=== PATIENT | female | born 1970 | race American Indian/Alaskan Native ===

== ENCOUNTER 2021-03-06 10:47 | Outpatient (CLI) | payer OTHER ==
--- NOTE | 2021-03-06 12:36 | XRay Report ---
CERVICAL SPINE 3 VIEWS INDICATION: NECKPAIN. COMPARISON: None. IMPRESSION: There is straightening of the normal lordosis which could be secondary to positioning of the patient. There is normal alignment otherwise. No significant discogenic DJD or facet arthropath y. No acute osseous or soft tissue abnormality. RIGHT KNEE 2 VIEWS INDICATION: Right knee pain. COMPARISON: None. IMPRESSION: Normal bone mineralization. No acute osseous abnormality or bone lesion. No significant DJD. Signer Name: Sonido Gonzalez Jr, MD Signed: 03/06/2021 12:32 PM Workstation Name: [id number]
== END 2021-03-06 10:48 | disposition home or self-care (01) ==
LOC: XRAY 10:47
PROVIDERS: ATTEND Internal Medicine
DX: M54.2 Cervicalgia (principal); M25.561 Pain in right knee
CPT/HCPCS: 72040

== ENCOUNTER 2021-11-24 13:47 | Inpatient (IN) | payer SELFPAY ==
[2021-11-24] MEDS ORDERED: INSULIN REGULAR, HUMAN 100 UNITS/1 ML IV STA (14:10)
[2021-11-24] MEDS ORDERED: SODIUM CHLORIDE 0.9% 1000 ML 1,000 ML IV ONE ×3 (14:10→16:54)
--- NOTE | 2021-11-24 14:17 | Emergency Department Report ---
ED General Adult HPI - General Chief complaint: Altered Mental Status Stated complaint: AMS/HYPERGLYCEMIA PUI?: No Time Seen by Provider: 11/24/21 13:54 Source: patient, EMS, old records reviewed Mode of arrival: Stretcher Limitations: No Limitations - History of Present Illness Initial comments: Chief complaint: "My son called because I was not feeling good." HPI: This is a 50-year-old female with history of diabetes mellitus, hypertension who presents with generalized malaise. Patient has not been feeling well for several days. Her son called 911. She denies headache, fever, chest pain, abdominal pain, vomiting. She has not been hospitalized in several years. She only takes Metformin for diabetes mellitus treatment. Accu-Chek read "high". -: Gradual, days(s) (Several days) Severity scale (0 -10): 0 Consistency: constant Improves with: none Worsens with: none Associated Symptoms: malaise Treatments Prior to Arrival: none, other (EMS transport) - Related Data Home Medications Medication Instructions Recorded Confirmed Last Taken Insulin Glargine,Hum.rec.anlog 20 units SUB-Q QHS 11/06/13 11/06/13 11/05/13 22:00 [Lantus Solostar] Insulin NPH/Regular [Novolin 70/30] 25 units SUB-Q QAM 11/06/13 11/06/13 11/05/13 08:00 Previous Rx's Medication Instructions Recorded Last Taken Type Cyclobenzaprine [Flexeril] 10 mg PO TID PRN #15 tablet 11/06/13 Unknown Rx HYDROcodone/APAP 5-325 [[place] 1 each PO Q6HR PRN #15 tablet 11/06/13 Unknown Rx 5/325 mg] Allergies Allergy/AdvReac Type Severity Reaction Status Date / Time codeine AdvReac Swelling Verified 11/06/13 12:40 iodine AdvReac Unknown Verified 11/06/13 12:40 Penicillins AdvReac Swelling Verified 11/06/13 12:40 ED Review of Systems ROS: Stated complaint: AMS/HYPERGLYCEMIA Other details as noted in HPI Comment: All other systems reviewed and negative Constitutional: malaise. denies: chills, fever Respiratory: denies: cough, shortness of breath Cardiovascular: denies: chest pain Gastrointestinal: denies: abdominal pain, nausea, vomiting Neurological: denies: headache ED Past Medical Hx - Past Medical History Previous Medical History?: Yes Hx Hypertension: Yes Hx Diabetes: Yes - Surgical History Past Surgical History?: No - Family History Family history: diabetes - Social History Smoking Status: Never Smoker Substance Use Type: None - Medications Home Medications: Home Medications Medication Instructions Recorded Confirmed Last Taken Type Cyclobenzaprine [Flexeril] 10 mg PO TID PRN #15 tablet 11/06/13 Unknown Rx HYDROcodone/APAP 5-325 [[place] 1 each PO Q6HR PRN #15 tablet 11/06/13 Unknown Rx 5/325 mg] Insulin Glargine,Hum.rec.anlog 20 units SUB-Q QHS 11/06/13 11/06/13 11/05/13 22:00 History [Lantus Solostar] Insulin NPH/Regular [Novolin 70/30] 25 units SUB-Q QAM 11/06/13 11/06/13 11/05/13 08:00 History ED Physical Exam - General Limitations: No Limitations General appearance: alert, in no apparent distress - Head Head exam: Present: atraumatic, normocephalic - Eye Eye exam: Present: normal appearance - ENT ENT exam: Present: mucous membranes moist - Neck Neck exam: Present: normal inspection, full ROM - Respiratory Respiratory exam: Present: normal lung sounds bilaterally. Absent: respiratory distress, wheezes, rales, rhonchi - Cardiovascular Cardiovascular Exam: Present: regular rate, normal rhythm, normal heart sounds. Absent: systolic murmur, diastolic murmur, rubs, gallop - GI/Abdominal GI/Abdominal exam: Present: soft, normal bowel sounds. Absent: distended, tenderness, guarding, rebound - Extremities Exam Extremities exam: Present: normal inspection - Neurological Exam Neurological exam: Present: alert, oriented X3 - Psychiatric Psychiatric exam: Present: normal affect, normal mood - Skin Skin exam: Present: warm, dry, intact, normal color. Absent: rash ED Course Vital Signs 11/24/21 11/24/21 11/24/21 14:01 14:02 14:09 Temperature 97.7 F 97.7 F Pulse Rate 108 H 112 H Respiratory 16 17 17 Rate Blood Pressure Blood Pressure 100/53 106/62 [Left] O2 Sat by Pulse 99 100 Oximetry 11/24/21 11/24/21 11/24/21 14:12 14:16 14:30 Temperature Pulse Rate 111 H 112 H 109 H Respiratory 17 15 Rate Blood Pressure 106/62 100/55 Blood Pressure [Left] O2 Sat by Pulse 100 94 Oximetry 11/24/21 11/24/21 11/24/21 14:46 15:00 15:16 Temperature Pulse Rate 108 H 107 H Respiratory 13 11 L Rate Blood Pressure 110/54 98/50 100/62 Blood Pressure [Left] O2 Sat by Pulse 97 79 L 96 Oximetry 11/24/21 11/24/21 11/24/21 15:30 15:46 16:00 Temperature Pulse Rate Respiratory Rate Blood Pressure 97/47 93/50 67/36 Blood Pressure [Left] O2 Sat by Pulse 99 99 100 Oximetry 11/24/21 11/24/21 16:16 16:30 Temperature Pulse Rate Respiratory Rate Blood Pressure 62/44 72/54 Blood Pressure [Left] O2 Sat by Pulse 100 98 Oximetry ED Medical Decision Making - Lab Data Result diagrams: 11/24/21 14:21 11/24/21 14:21 - Medical Decision Making Diabetic ketoacidosis: Patient received IV fluid 4 L total. Patient developed hypotension during treatment. Suspect severe volume depletion. Patient also received IV regular insulin bolus. Also received insulin infusion. Admitted to the ICU stable condition. Venous pH 7.24 chemistry revealed anion gap 46 BUN 46 creatinine 1.4 bicarbonate 12. Elevated phosphorus and elevated magnesium 1 chemistry. Glucose 798. No indication of infection on this presentation. Suspect diabetes has been poorly controlled with Metformin. Critical care attestation.: If time is entered above; I have spent that time in minutes in the direct care of this critically ill patient, excluding procedure time. ED Disposition Clinical Impression: Diabetic ketoacidosis Disposition: ADMITTED INPATIENT Is pt being admited?: Yes Does the pt Need Aspirin: No Condition: Fair Instructions: Diabetic Ketoacidosis (ED)
[2021-11-24 15:13] LABS: Basophils % (Auto) 0.3 % (0.0-1.8); Hemoglobin 14.2 gm/dl (10.1-14.3); Lymphocytes # (Auto) 1.2 K/mm3 (1.2-5.4); Lymphocytes % (Auto) 11.2 % (13.4-35.0); Mean Corpuscular HGB Conc 32 % (30-34); Mean Corpuscular Volume 89 fl (79-97); Monocytes # (Auto) 0.5 K/mm3 (0.0-0.8); Monocytes % (Auto) 4.2 % (0.0-7.3); Platelet Count 221 K/mm3 (140-440); Red Blood Count 5.08 M/mm3 (3.65-5.03); Red Cell Distribution Width 14.8 % (13.2-15.2)
[2021-11-24 15:33] LABS: Bilirubin,Direct 0.2 mg/dL (0-0.2); Calcium 10.4 mg/dL (8.4-10.2)
[2021-11-24] MEDS: INSULIN REGULAR, HUMAN 100 UNITS in SODIUM CHLORIDE 0.9% 99 ML IV SCH (16:09)
[2021-11-24] MEDS: SODIUM CHLORIDE 0.9% 1000 ML 1,000 ML IV ONE ×2 (17:19→17:20)
--- NOTE | 2021-11-24 20:14 | History and Physical Report ---
History of Present Illness Date of examination: 11/24/21 Date of admission: November 24, 2021 Chief complaint: Altered sensorium for the last 36 hours History of present illness: 50-year-old -[place] female with history of insulin-dependent diabetes, hypertension who supposed to be on long-acting insulin and short-acting insulin has been lethargic for the last 36 hours. Son called 911. Patient has not been feeling well and has generalized malaise. No vomiting. No abdominal pain. Patient has been noncompliant with her medication regimen. Very poor historian. No fever or chills. No cough. No exacerbating or relieving factors. Except for not taking her medications which is an exacerbating factor. - Past Medical History --Previous Medical History?: Yes --Hypertension: Yes --Diabetes: Yes - Surgical History -- No - Family History --Diabetes - Social History --Smoking Status: Never Smoker --Substance Use Type: None - Medications --Home Medications: Home Medications Medication Instructions Recorded Confirmed Last Taken Type Cyclobenzaprine [Flexeril] 10 mg PO TID PRN #15 tablet 11/06/13 Unknown Rx HYDROcodone/APAP 5-325 [[place] 1 each PO Q6HR PRN #15 tablet 11/06/13 Unknown Rx 5/325 mg] Insulin Glargine,Hum.rec.anlog 20 units SUB-Q QHS 11/06/13 11/06/13 11/05/13 22:00 History [Lantus Solostar] Insulin NPH/Regular [Novolin 70/30] 25 units SUB-Q QAM 11/06/13 11/06/13 11/05/13 08:00 History Review of Systems ROS: Stated complaint: AMS/HYPERGLYCEMIA Other details as noted in HPI Comment: All other systems reviewed and negative Constitutional: malaise. denies: chills, fever Respiratory: denies: cough, shortness of breath Cardiovascular: denies: chest pain Gastrointestinal: denies: abdominal pain, nausea, vomiting Neurological: denies: headache Medications and Allergies Allergies Allergy/AdvReac Type Severity Reaction Status Date / Time codeine AdvReac Swelling Verified 11/06/13 12:40 iodine AdvReac Unknown Verified 11/06/13 12:40 Penicillins AdvReac Swelling Verified 11/06/13 12:40 Home Medications Medication Instructions Recorded Confirmed Last Taken Type Cyclobenzaprine [Flexeril] 10 mg PO TID PRN #15 tablet 11/06/13 Unknown Rx HYDROcodone/APAP 5-325 [[place] 1 each PO Q6HR PRN #15 tablet 11/06/13 Unknown Rx 5/325 mg] Insulin Glargine,Hum.rec.anlog 20 units SUB-Q QHS 11/06/13 11/06/13 11/05/13 22:00 History [Lantus Solostar] Insulin NPH/Regular [Novolin 70/30] 25 units SUB-Q QAM 11/06/13 11/06/13 11/05/13 08:00 History Active Meds: Active Medications Insulin Human Regular 100 (units/ Sodium Chloride) 100 mls @ 7 mls/hr IV TITR LORRAINE; Protocol Last Titration: 11/24/21 19:40 Dose: 7 units/hr, 7 mls/hr Exam - Constitutional Vitals: Temp Pulse Resp BP Pulse Ox 97.7 F 116 H 15 104/49 98 11/24/21 14:09 11/24/21 18:45 11/24/21 18:45 11/24/21 18:45 11/24/21 18:45 General appearance: Present: no acute distress, well-nourished - EENT Eyes: Present: PERRL ENT: hearing intact, clear oral mucosa - Neck Neck: Present: supple, normal ROM - Respiratory Respiratory effort: normal Respiratory: bilateral: CTA - Cardiovascular Heart rate: 88 Rhythm: regular Heart Sounds: Present: S1 & S2. Absent: rub, click - Extremities Extremities: pulses symmetrical, No edema Peripheral Pulses: within normal limits - Abdominal General gastrointestinal: Present: soft, non-tender, non-distended, normal bowel sounds Female genitourinary: Present: normal - Integumentary Integumentary: Present: clear, warm, dry - Musculoskeletal Musculoskeletal: strength equal bilaterally, generalized weakness - Psychiatric Psychiatric: other (Lethargic) - Neurologic Neurologic: CNII-XII intact, moves all extremities, other (Lethargic) Results - Labs CBC & Chem 7: 11/25/21 04:13 11/25/21 04:13 Labs: Laboratory Last Values WBC 11.1 K/mm3 (4.5-11.0) H 11/24/21 14:21 RBC 5.08 M/mm3 (3.65-5.03) H 11/24/21 14:21 Hgb 14.2 gm/dl (10.1-14.3) 11/24/21 14:21 Hct 45.0 % (30.3-42.9) H 11/24/21 14:21 MCV 89 fl (79-97) 11/24/21 14:21 MCH 28 pg (28-32) 11/24/21 14:21 MCHC 32 % (30-34) 11/24/21 14:21 RDW 14.8 % (13.2-15.2) 11/24/21 14:21 Plt Count 221 K/mm3 (140-440) 11/24/21 14:21 Lymph % (Auto) 11.2 % (13.4-35.0) L 11/24/21 14:21 [place] % (Auto) 4.2 % (0.0-7.3) 11/24/21 14:21 Eos % (Auto) 0.0 % (0.0-4.3) 11/24/21 14:21 Baso % (Auto) 0.3 % (0.0-1.8) 11/24/21 14:21 Lymph # (Auto) 1.2 K/mm3 (1.2-5.4) 11/24/21 14:21 [place] # (Auto) 0.5 K/mm3 (0.0-0.8) 11/24/21 14:21 Eos # (Auto) 0.0 K/mm3 (0.0-0.4) 11/24/21 14:21 Baso # (Auto) 0.0 K/mm3 (0.0-0.1) 11/24/21 14:21 Seg Neutrophils % 84.3 % (40.0-70.0) H 11/24/21 14: Seg Neutrophils # 9.3 K/mm3 (1.8-7.7) H 11/24/21 14:21 VBG pH 7.239 (7.320-7.420) L 11/24/21 14:21 Sodium 143 mmol/L (137-145) 11/24/21 14:21 Potassium 5.2 mmol/L (3.6-5.0) H 11/24/21 14:21 Chloride 90.0 mmol/L (98-107) L 11/24/21 14:21 Carbon Dioxide 12 mmol/L (22-30) L 11/24/21 14:21 Anion Gap 46 mmol/L 11/24/21 14:21 BUN 46 mg/dL (7-17) H 11/24/21 14:21 Creatinine 1.4 mg/dL (0.6-1.2) H 11/24/21 14:21 Estimated GFR 48 ml/min 11/24/21 14:21 BUN/Creatinine Ratio 33 % 11/24/21 14:21 Glucose 798 mg/dL (65-100) H* 11/24/21 14:21 POC Glucose 358 mg/dL (70-105) H 11/24/21 19:40 Calcium 10.4 mg/dL (8.4-10.2) H 11/24/21 14:21 Phosphorus 6.00 mg/dL (2.5-4.5) H 11/24/21 14:21 Magnesium 3.20 mg/dL (1.7-2.3) H 11/24/21 14:21 Total Bilirubin 0.40 mg/dL (0.1-1.2) 11/24/21 14:21 Direct Bilirubin 0.2 mg/dL (0-0.2) 11/24/21 14:21 Indirect Bilirubin 0.2 mg/dL 11/24/21 14:21 AST 9 units/L (5-40) 11/24/21 14:21 ALT 12 units/L (7-56) 11/24/21 14:21 Alkaline Phosphatase 113 units/L (35-129) 11/24/21 14:21 Total Protein 7.4 g/dL (6.3-8.2) 11/24/21 14:21 Albumin 4.0 g/dL (3.9-5) 11/24/21 14:21 Albumin/Globulin Ratio 1.2 % 11/24/21 14:21 Short CBC 11/24/21 11/25/21 Range/Units 14:21 04:13 WBC 11.1 H 8.8 (4.5-11.0) K/mm3 Hgb 14.2 12.4 (10.1-14.3) gm/dl Hct 45.0 H 38.8 D (30.3-42.9) % Plt Count 221 195 (140-440) K/mm3 BMP 11/24/21 11/24/21 11/25/21 14:21 22:38 04:13 Sodium 143 148 H 152 H Potassium 5.2 H 4.2 4.2 Chloride 90.0 L 110.7 H 114.8 H Carbon Dioxide 12 L 18 L 23 BUN 46 H 46 H 44 H Creatinine 1.4 H 1.2 1.1 Glucose 798 H* 287 H 195 H Calcium 10.4 H 8.6 D 8.8 Liver Function 11/24/21 11/25/21 Range/Units 14:21 04:13 Total Bilirubin 0.40 0.30 (0.1-1.2) mg/dL Direct Bilirubin 0.2 (0-0.2) mg/dL AST 9 9 (5-40) units/L ALT 12 11 (7-56) units/L Alkaline Phosphatase 113 88 (35-129) units/L Albumin 4.0 3.6 L (3.9-5) g/dL Assessment and Plan Assessment and plan: Critical care statement The high probability OF a clinically significant sudden or life-threatening deterioration of the cardiorespiratory system and endocrine system required my full and direct attention, intervention and postoperative management. The aggregate critical care time was 33 minutes. The time is in addition to time spent performing reported procedures but includes the followin: Data review and interpretation 2: Patient assessment and monitoring of vital signs 3: Documentation 4:: Medication orders and management Advance Directives: Yes (Full code) VTE prophylaxis?: Chemical Plan of care discussed with patient/family: Yes - Patient Problems (1) Diabetic ketoacidosis Current Visit: Yes Status: Acute Qualifiers: Diabetes mellitus type: type 2 Diabetes mellitus complication detail: without coma Qualified Code(s): E11.10 - Type 2 diabetes mellitus with ketoacidosis without coma Plan to address problem: DKA due to noncompliance CO2 level is 12 IV insulin IV fluids Regular Accu-Cheks Patient also started on Lantus 20 units nightly subcu Monitor sodium and potassium closely Volume depletion present Check hemoglobin A1c (2) Hypertension Current Visit: Yes Status: Chronic Qualifiers: Hypertension type: primary hypertension Qualified Code(s): I10 - Essential (primary) hypertension Plan to address problem: Patient not on any antihypertensives We will initiate antihypertensives if necessary after trending the blood pressure levels (3) MIKE (acute kidney injury) Current Visit: Yes Status: Acute Plan to address problem: Secondary to volume depletion and vasomotor nephropathy IV fluids for now (4) Hypercalcemia Current Visit: Yes Status: Acute Plan to address problem: Secondary to volume depletion IV fluids for now (5) Hypermagnesemia Current Visit: Yes Status: Acute Plan to address problem: Secondary to volume depletion IV fluids for now (6) DVT prophylaxis Current Visit: Yes Status: Acute Plan to address problem: Anticoagulation GI prophylaxis (7) Advance care planning Current Visit: Yes Status: Acute Plan to address problem: Disease education conducted, care plan discussed, diagnosis discussed, prognosis discussed. Patient is full code. Patient acknowledges understanding and agreement with care plan. +30 minutes.
[2021-11-24] MEDS ORDERED: HYDROmorphone 1 MG/1 ML INJ IV PRN (20:15)
[2021-11-24] MEDS ORDERED: MORPHINE 2 MG/1 ML INJ IV PRN (20:15)
[2021-11-24] MEDS ORDERED: ONDANSETRON 4 MG/2 ML INJ IV PRN (20:15)
[2021-11-24] MEDS ORDERED: ACETAMINOPHEN 325 MG TAB PO PRN (20:15)
[2021-11-24] MEDS ORDERED: D5W/0.45% NACL/KCL 20 MEQ 20 MEQ/1,000 ML BAG IV SCH (21:00)
[2021-11-24] MEDS ORDERED: INSULIN REGULAR, HUMAN 100 UNITS in SODIUM CHLORIDE 0.9% 99 ML IV SCH (21:00)
[2021-11-24] MEDS: POTASSIUM CHLORIDE 10 MEQ 10 MEQ/100 ML BAG IV SCH ×3 (21:38→23:47)
[2021-11-24] MEDS ORDERED: INSULIN GLARGINE 100 UNITS/ML SUB-Q SCH (22:00)
[2021-11-24] MEDS ORDERED: HEPARIN 5,000 UNIT/1 ML VIAL SUB-Q SCH (22:00)
[2021-11-24] MEDS ORDERED: FAMOTIDINE 20 MG/2 ML INJ IV SCH (22:00)
[2021-11-24] MEDS ORDERED: SODIUM CHLORIDE 0.45% 1000 ML 1,000 ML IV SCH (22:00)
[2021-11-24] MEDS ORDERED: INSULIN GLARGINE HUM REC ANLOG 100 UNIT/ML SUB-Q SCH (22:00)
[2021-11-24 23:09] LABS: Calcium 8.6 mg/dL (8.4-10.2)
[2021-11-24] MEDS ORDERED: LORazepam 2 MG/ML VIAL IV PRN ×2 (23:58→23:59)
[2021-11-25] MEDS: POTASSIUM CHLORIDE 10 MEQ 10 MEQ/100 ML BAG IV SCH (00:19)
[2021-11-25 05:08] LABS: Basophils % (Auto) 0.3 % (0.0-1.8); Eosinophils % (Auto) 0.1 % (0.0-4.3); Hematocrit 38.8 % (30.3-42.9); Hemoglobin 12.4 gm/dl (10.1-14.3); Lymphocytes # (Auto) 1.4 K/mm3 (1.2-5.4); Mean Corpuscular HGB Conc 32 % (30-34); Mean Corpuscular Volume 85 fl (79-97); Monocytes # (Auto) 0.8 K/mm3 (0.0-0.8); Monocytes % (Auto) 8.9 % (0.0-7.3); Platelet Count 195 K/mm3 (140-440); Red Blood Count 4.57 M/mm3 (3.65-5.03); Red Cell Distribution Width 14.6 % (13.2-15.2)
[2021-11-25 05:32] LABS: Alanine Aminotransferase 11 units/L (7-56); Albumin 3.6 g/dL (3.9-5); BUN/Creatinine Ratio 40; Blood Urea Nitrogen 44 mg/dL (7-17); Calcium 8.8 mg/dL (8.4-10.2); Hemolysis Index 9
[2021-11-25] MEDS ORDERED: D5W/0.45% NACL 1,000 ML IV ONE (05:53)
[2021-11-25] MEDS ORDERED: DEXTROSE 50% IN WATER (25GM) 50 ML SYRINGE IV PRN (07:31)
[2021-11-25] MEDS ORDERED: POTASSIUM PHOSPHATE 30 MMOL in SODIUM CHLORIDE 0.9% 500 ML 500 ML IV ONE ×2 (07:35→17:09)
[2021-11-25] MEDS ORDERED: INSULIN REGULAR, HUMAN 100 UNITS/1 ML SUB-Q SCH (08:00)
[2021-11-25] MEDS ORDERED: DEXTROSE 10% *Hypoglycemia IV PRN (09:08)
[2021-11-25] MEDS ORDERED: INSULIN GLARGINE 100 UNITS/ML SUB-Q SCH (10:00)
--- NOTE | 2021-11-25 10:26 | Event Note ---
Date: 11/25/21 50 y/o admitted with DKA. Elevated anion Gap. Started on insulin drip and now Gap has resolved. Placed on Long acting insulin. Feed patient and transition to floor. Will sign off. Call if questions.
[2021-11-25] MEDS: FAMOTIDINE 20 MG TAB PO SCH (11:00)
[2021-11-25] MEDS: K-PHOS NEUTRAL 250 MG TAB PO SCH ×4 (11:00→21:08)
[2021-11-25] MEDS: FREE WATER PO SCH ×4 (11:11→21:44)
[2021-11-25] MEDS ORDERED: INSULIN LISPRO 100 UNIT/ML SUB-Q SCH (11:30)
[2021-11-25 13:28] LABS: BUN/Creatinine Ratio 38; Blood Urea Nitrogen 34 mg/dL (7-17); Calcium 9.3 mg/dL (8.4-10.2); Hemolysis Index 19
--- NOTE | 2021-11-25 13:32 | Progress Note ---
Assessment and Plan Assessment and plan: This is a 50-year-old female with HTN, IDDM, medical noncompliance admitted with DKA, MIKE, and electrolyte imbalances. Assessment and plan: Neuro: Acute metabolic encephalopathy -Patient is confused but oriented to self and follows commands -Avoid delirium -Reorientation as needed -Maintain sleep-wake cycle Cardiac: h/o HTN -No hypertensive regimen listed on home medications -Blood pressure monitoring per protocol -Start beta-kwabena Respiratory: NAD -Rheumatology as needed -SPO2 monitoring -Pulmonary hygiene GI: NAD -24 hours +46 -PPI -BR: colace : Acute kidney injury secondary to vasomotor nephropathy, hypernatremia, hyperchloremia, high anion gap metabolic acidosis -Presented with a BUN/creatinine of 1.4/46 -Renally dose medications -Avoid nephrotoxic medications -Daily weights -PO free water ID: SIRs -Presented with leukocytosis, tachycardia -Monitor WBC and fever curve Endo: DKA, h/o IDDM -s/p insulin gtt this AM r/t AG closing however patient needed to be restarted this afternoon d/t AG opening back up -Avoid hypoglycemia -Accu-Cheks per protocol -BMP per protocol -Hemoglobin A1c 20.6 -We will need discharge with diabetic supplies and extensive education for compliance. -Nutrition consult for diabetic education Heme: Leukocytosis (resolved) -Trend CBC -Transfuse hemoglobin less than 7 -Monitor for signs of bleeding -SCDs to BLE while in bed The high probability of a clinically significant, sudden or life threatening deterioration of the [endo] system(s) required my full and direct attention, intervention and personal management. The aggregate critical care time was [60] minutes. This time is in addition to time spent performing reported procedures but includes the following: [x] Data Review and interpretation [x] Patient assessment and monitoring of vital signs [x] Documentation [x] Medication orders and management History Interval history: This is a 50-year-old female with HTN, IDDM and noncompliance presented to the emergency department on 11/24 for complaints of lethargy/AMS for 36 hours, generalized malaise and not feeling well. EMS. Work-up in the emergency department revealed hyponatremia, hypochloremia, anion gap metabolic acidosis, leukocytosis, hyperkalemia and hyperglycemia. Patient was admitted to the hospitalist service with DKA and electrolyte imbalances, acute kidney injury on insulin drip to the ICU with consults to [facility]. Hospital course to date: 11/25: Anion gap closed, insulin drip transitioned to SSI, long-acting insulin and short acting meal doses. Patient started on a CC diet, COVID-19 PCR pending. Patient will be transferred to [facility]. Hospitalist Physical - Constitutional Vitals: Temp Pulse Resp BP Pulse Ox 99 F 107 H 17 150/91 100 11/25/21 08:00 11/25/21 13:11 11/25/21 13:11 11/25/21 13:11 11/25/21 13:11 General appearance: Present: no acute distress, well-nourished - EENT Eyes: Present: PERRL, EOM intact ENT: hearing intact, clear oral mucosa - Neck Neck: Present: normal ROM - Respiratory Respiratory effort: normal Respiratory: bilateral: diminished - Cardiovascular Rhythm: regular Heart Sounds: Present: S1 & S2. Absent: systolic murmur, diastolic murmur - Extremities Extremities: no ischemia, pulses intact, pulses symmetrical, No edema, normal temperature, normal color Peripheral Pulses: within normal limits - Abdominal General gastrointestinal: soft, non-tender, non-distended, normal bowel sounds - Integumentary Integumentary: Present: warm, dry - Psychiatric Psychiatric: cooperative - Neurologic Neurologic: CNII-XII intact, no focal deficits, moves all extremities - Allied Health Allied health notes reviewed: nursing, RT, social work Results - Labs CBC & Chem 7: 11/25/21 04:13 11/25/21 12:46 Labs: Laboratory Last Values WBC 8.8 K/mm3 (4.5-11.0) 11/25/21 04:13 RBC 4.57 M/mm3 (3.65-5.03) 11/25/21 04:13 Hgb 12.4 gm/dl (10.1-14.3) 11/25/21 04:13 Hct 38.8 % (30.3-42.9) D 11/25/21 04:13 MCV 85 fl (79-97) 11/25/21 04:13 MCH 27 pg (28-32) L 11/25/21 04:13 MCHC 32 % (30-34) 11/25/21 04:13 RDW 14.6 % (13.2-15.2) 11/25/21 04:13 Plt Count 195 K/mm3 (140-440) 11/25/21 04:13 Lymph % (Auto) 16.0 % (13.4-35.0) 11/25/21 04:13 [place] % (Auto) 8.9 % (0.0-7.3) H 11/25/21 04:13 Eos % (Auto) 0.1 % (0.0-4.3) 11/25/21 04:13 Baso % (Auto) 0.3 % (0.0-1.8) 11/25/21 04:13 Lymph # (Auto) 1.4 K/mm3 (1.2-5.4) 11/25/21 04:13 [place] # (Auto) 0.8 K/mm3 (0.0-0.8) 11/25/21 04:13 Eos # (Auto) 0.0 K/mm3 (0.0-0.4) 11/25/21 04:13 Baso # (Auto) 0.0 K/mm3 (0.0-0.1) 11/25/21 04:13 Seg Neutrophils % 74.7 % (40.0-70.0) H 11/25/21 04:13 Seg Neutrophils # 6.6 K/mm3 (1.8-7.7) 11/25/21 04:13 VBG pH 7.239 (7.320-7.420) L 11/24/21 14:21 Sodium 149 mmol/L (137-145) H 11/25/21 12:46 Potassium 4.3 mmol/L (3.6-5.0) 11/25/21 12:46 Chloride 110.1 mmol/L (98-107) H 11/25/21 12:46 Carbon Dioxide 19 mmol/L (22-30) L 11/25/21 12:46 Anion Gap 24 mmol/L 11/25/21 12:46 BUN 34 mg/dL (7-17) H 11/25/21 12:46 Creatinine 0.9 mg/dL (0.6-1.2) 11/25/21 12:46 Estimated GFR > 60 ml/min 11/25/21 12:46 BUN/Creatinine Ratio 38 % 11/25/21 12:46 Glucose 304 mg/dL (65-100) H 11/25/21 12:46 POC Glucose 230 mg/dL (70-105) H 11/25/21 11:50 Calcium 9.3 mg/dL (8.4-10.2) 11/25/21 12:46 Phosphorus 1.50 mg/dL (2.5-4.5) L D 11/24/21 22:38 Magnesium 2.60 mg/dL (1.7-2.3) H 11/24/21 22:38 Total Bilirubin 0.30 mg/dL (0.1-1.2) 11/25/21 04:13 Direct Bilirubin 0.2 mg/dL (0-0.2) 11/24/21 14:21 Indirect Bilirubin 0.2 mg/dL 11/24/21 14:21 AST 9 units/L (5-40) 11/25/21 04:13 ALT 11 units/L (7-56) 11/25/21 04:13 Alkaline Phosphatase 88 units/L (35-129) 11/25/21 04:13 Total Protein 6.4 g/dL (6.3-8.2) 11/25/21 04:13 Albumin 3.6 g/dL (3.9-5) L 11/25/21 04:13 Albumin/Globulin Ratio 1.3 % 11/25/21 04:13 Active Medications - Current Medications Current Medications: Generic Name Dose Route Start Last Admin Trade Name Freq PRN Reason Stop Dose Admin Acetaminophen 650 mg 11/24/21 20:15 Acetaminophen 325 Mg Tab PO Q4H PRN Pain MILD(1-3)/Fever >100.5/HUERTA Dextrose 0 ml 11/25/21 09:08 Dextrose 10% *Hypoglycemia IV PRN PRN Hypoglycemia Enoxaparin Sodium 40 mg 11/25/21 22:00 Enoxaparin 40 Mg/0.4 Ml Inj SUB-Q QDAY@2200 [facility] Protocol Famotidine 20 mg 11/25/21 10:00 11/25/21 11:00 Famotidine 20 Mg Tab PO 20 mg QDAY LORRAINE Administration Insulin Glargine 20 units 11/25/21 10:00 11/25/21 11:00 Insulin Glargine 100 Units/Ml SUB-Q 20 units QAM LORRAINE Administration Insulin Human Lispro 0 unit 11/25/21 11:30 Insulin Lispro 100 Unit/Ml SUB-Q ACHS [facility] Protocol Insulin Human Regular 3 units 11/25/21 08:00 11/25/21 08:39 Insulin Regular, Human 100 Units/1 Ml SUB-Q 3 units TIDAC LORRAINE Administration Ondansetron HCl 4 mg 11/24/21 20:15 Ondansetron 4 Mg/2 Ml Inj IV Q8H PRN Nausea And Vomiting Sodium Chloride 10 ml 11/24/21 22:00 11/25/21 11:00 Sodium Chloride 0.9% 10 Ml Flush Syringe IV 10 ml BID LORRAINE Administration Sodium Chloride 10 ml 11/24/21 20:15 Sodium Chloride 0.9% 10 Ml Flush Syringe IV PRN PRN LINE FLUSH Sodium Phosphate 250 mg 11/25/21 10:00 11/25/21 11:00 K-Phos Neutral 250 Mg Tab PO 11/25/21 22:01 250 mg QID LORRAINE Administration
[2021-11-25] MEDS ORDERED: INSULIN REGULAR, HUMAN 100 UNITS in SODIUM CHLORIDE 0.9% 99 ML IV SCH (14:00)
[2021-11-25] MEDS ORDERED: LACTATED RINGERS 1,000 ML IV ONE (14:00)
[2021-11-25] MEDS: INSULIN REGULAR, HUMAN 100 UNITS in SODIUM CHLORIDE 0.9% 99 ML IV SCH ×2 (14:25→14:37)
[2021-11-25] MEDS: METOPROLOL TARTRATE 25 MG TAB PO SCH ×2 (14:46→21:09)
[2021-11-25 16:49] LABS: BUN/Creatinine Ratio 37; Blood Urea Nitrogen 33 mg/dL (7-17); Calcium 9.4 mg/dL (8.4-10.2); Hemolysis Index 11
[2021-11-25] MEDS: D5W/0.45% NACL/KCL 20 MEQ 20 MEQ/1,000 ML BAG IV SCH (18:08)
[2021-11-25 19:22] LABS: BUN/Creatinine Ratio 39; Blood Urea Nitrogen 31 mg/dL (7-17); Calcium 8.9 mg/dL (8.4-10.2); Hemolysis Index 19
[2021-11-25] MEDS: ENOXAPARIN 40 MG/0.4 ML INJ SUB-Q SCH (21:08)
[2021-11-25] MEDS: DOCUSATE SODIUM 100 MG CAP PO SCH (21:09)
[2021-11-26 00:02] LABS: BUN/Creatinine Ratio 29; Blood Urea Nitrogen 23 mg/dL (7-17); Calcium 8.6 mg/dL (8.4-10.2); Hemolysis Index 7
[2021-11-26] MEDS: D5W/0.45% NACL/KCL 20 MEQ 20 MEQ/1,000 ML BAG IV SCH (01:54)
[2021-11-26] MEDS: FREE WATER PO SCH ×2 (02:38→05:14)
[2021-11-26 05:02] LABS: Blood Urea Nitrogen 18 mg/dL (7-17); Calcium 8.9 mg/dL (8.4-10.2); Hemolysis Index 36
[2021-11-26 05:03] LABS: BUN/Creatinine Ratio 30
[2021-11-26] MEDS ORDERED: DEXTROSE 50% IN WATER (25GM) 50 ML SYRINGE IV PRN (07:52)
[2021-11-26] MEDS ORDERED: POTASSIUM PHOSPHATE 15 MMOL in SODIUM CHLORIDE 0.9% 250ML 250 ML IV SCH (09:00)
[2021-11-26] MEDS: METOPROLOL TARTRATE 25 MG TAB PO SCH ×2 (09:34→22:19)
[2021-11-26] MEDS: INSULIN GLARGINE 100 UNITS/ML SUB-Q SCH (09:34)
[2021-11-26] MEDS: DOCUSATE SODIUM 100 MG CAP PO SCH ×2 (09:37→22:19)
[2021-11-26] MEDS: FAMOTIDINE 20 MG TAB PO SCH (09:37)
[2021-11-26] MEDS ORDERED: METOPROLOL TARTRATE 50 MG TAB PO ONE (12:00)
[2021-11-26] MEDS: INSULIN LISPRO 100 UNIT/ML SUB-Q SCH ×5 (13:02→22:18)
--- NOTE | 2021-11-26 13:57 | Progress Note ---
Assessment and Plan Assessment and plan: This is a 50-year-old female with HTN, IDDM, medical noncompliance admitted with DKA, MIKE, and electrolyte imbalances. Assessment and plan: Neuro: Acute metabolic encephalopathy (resolved) -Avoid delirium -Reorientation as needed -Maintain sleep-wake cycle Cardiac: h/o HTN -No hypertensive regimen listed on home medications -Blood pressure monitoring per protocol -BB (titrate is needed), added norvasc Respiratory: NAD -Supplemental oxygen as needed -SPO2 monitoring -Pulmonary hygiene GI: NAD -24 hours +385 mL -PPI -BR: colace : Acute kidney injury secondary to vasomotor nephropathy (resolved), hypernatremia, hyperchloremia, high anion gap metabolic acidosis (resolved), hypophosphatemia -Presented with a BUN/creatinine of 1.4/46 -Renally dose medications -Avoid nephrotoxic medications -Daily weights -PO free water -Replete phos again ID: SIRs -Presented with leukocytosis, tachycardia -Monitor WBC and fever curve Endo: DKA, h/o IDDM -s/p insulin gtt -Avoid hypoglycemia -Accu-Cheks ACHS -SSI, long acting insulin, TID short acting insulin -Hemoglobin A1c 20.6 -We will need discharge with diabetic supplies and extensive education for compliance. -Nutrition consult for diabetic education Heme: Leukocytosis (resolved) -Trend CBC -Transfuse hemoglobin less than 7 -Monitor for signs of bleeding -SCDs to BLE while in bed The high probability of a clinically significant, sudden or life threatening deterioration of the [endo] system(s) required my full and direct attention, int ervention and personal management. The aggregate critical care time was [60] minutes. This time is in addition to time spent performing reported procedures but includes the following: [x] Data Review and interpretation [x] Patient assessment and monitoring of vital signs [x] Documentation [x] Medication orders and management Disposition Plan: transfer to floor Total Time Spent with Patient (Minutes): 60 History Interval history: This is a 50-year-old female with HTN, IDDM and noncompliance presented to the emergency department on 11/24 for complaints of lethargy/AMS for 36 hours, generalized malaise and not feeling well. EMS. Work-up in the emergency department revealed hyponatremia, hypochloremia, anion gap metabolic acidosis, leukocytosis, hyperkalemia and hyperglycemia. Patient was admitted to the hospitalist service with DKA and electrolyte imbalances, acute kidney injury on insulin drip to the ICU with consults to CCM. Hospital course to date: 11/25: Anion gap closed, insulin drip transitioned to SSI, long-acting insulin and short acting meal doses. Patient started on a CC diet, COVID-19 PCR pending. Patient will be transferred to [facility]. 11/26: Anion gap closed again, transition to long-acting insulin, SSI and short acting insulin 3 times daily. Start on a CC diet and given K-Phos. We will add Norvasc for continued hypertension and transferred to the floor. Hospitalist Physical - Constitutional Vitals: Temp Pulse Resp BP Pulse Ox 98.0 F 93 H 13 170/97 77 L 11/26/21 11:37 11/26/21 13:03 11/26/21 13:00 11/26/21 13:10 11/26/21 13:10 General appearance: Present: no acute distress, well-nourished - EENT Eyes: Present: PERRL, EOM intact ENT: dentition normal - Neck Neck: Present: normal ROM - Respiratory Respiratory effort: normal Respiratory: bilateral: CTA - Cardiovascular Rhythm: regular Heart Sounds: Present: S1 & S2. Absent: systolic murmur, diastolic murmur - Extremities Extremities: no ischemia, pulses intact, pulses symmetrical, No edema, normal temperature, normal color, Full ROM Peripheral Pulses: within normal limits - Abdominal General gastrointestinal: soft, non-tender, non-distended, normal bowel sounds - Integumentary Integumentary: Present: warm, dry - Psychiatric Psychiatric: cooperative - Neurologic Neurologic: CNII-XII intact, no focal deficits, moves all extremities - Allied Health Allied health notes reviewed: nursing, RT, social work Results - Labs CBC & Chem 7: 11/25/21 04:13 11/26/21 04:02 Labs: Laboratory Last Values WBC 8.8 K/mm3 (4.5-11.0) 11/25/21 04:13 RBC 4.57 M/mm3 (3.65-5.03) 11/25/21 04:13 Hgb 12.4 gm/dl (10.1-14.3) 11/25/21 04:13 Hct 38.8 % (30.3-42.9) D 11/25/21 04:13 MCV 85 fl (79-97) 11/25/21 04:13 MCH 27 pg (28-32) L 11/25/21 04:13 MCHC 32 % (30-34) 11/25/21 04:13 RDW 14.6 % (13.2-15.2) 11/25/21 04:13 Plt Count 195 K/mm3 (140-440) 11/25/21 04:13 Lymph % (Auto) 16.0 % (13.4-35.0) 11/25/21 04:13 [place] % (Auto) 8.9 % (0.0-7.3) H 11/25/21 04:13 Eos % (Auto) 0.1 % (0.0-4.3) 11/25/21 04:13 Baso % (Auto) 0.3 % (0.0-1.8) 11/25/21 04:13 Lymph # (Auto) 1.4 K/mm3 (1.2-5.4) 11/25/21 04:13 [place] # (Auto) 0.8 K/mm3 (0.0-0.8) 11/25/21 04:13 Eos # (Auto) 0.0 K/mm3 (0.0-0.4) 11/25/21 04:13 Baso # (Auto) 0.0 K/mm3 (0.0-0.1) 11/25/21 04:13 Seg Neutrophils % 74.7 % (40.0-70.0) H 11/25/21 04:13 Seg Neutrophils # 6.6 K/mm3 (1.8-7.7) 11/25/21 04:13 VBG pH 7.239 (7.320-7.420) L 11/24/21 14:21 Sodium 146 mmol/L (137-145) H 11/26/21 04:02 Potassium 3.7 mmol/L (3.6-5.0) 11/26/21 04:02 Chloride 112.4 mmol/L (98-107) H 11/26/21 04:02 Carbon Dioxide 24 mmol/L (22-30) 11/26/21 04:02 Anion Gap 13 mmol/L 11/26/21 04:02 BUN 18 mg/dL (7-17) H 11/26/21 04:02 Creatinine 0.6 mg/dL (0.6-1.2) 11/26/21 04:02 Estimated GFR > 60 ml/min 11/26/21 04:02 BUN/Creatinine Ratio 30 % 11/26/21 04:02 Glucose 144 mg/dL (65-100) H 11/26/21 04:02 POC Glucose 165 mg/dL (70-105) H 11/26/21 10:49 Hemoglobin A1c 20.7 % (4-6) H 11/25/21 12:46 Calcium 8.9 mg/dL (8.4-10.2) 11/26/21 04:02 Phosphorus 2.10 mg/dL (2.5-4.5) L D 11/26/21 04:02 Magnesium 2.30 mg/dL (1.7-2.3) 11/26/21 04:02 Total Bilirubin 0.30 mg/dL (0.1-1.2) 11/25/21 04:13 Direct Bilirubin 0.2 mg/dL (0-0.2) 11/24/21 14:21 Indirect Bilirubin 0.2 mg/dL 11/24/21 14:21 AST 9 units/L (5-40) 11/25/21 04:13 ALT 11 units/L (7-56) 11/25/21 04:13 Alkaline Phosphatase 88 units/L (35-129) 11/25/21 04:13 Total Protein 6.4 g/dL (6.3-8.2) 11/25/21 04:13 Albumin 3.6 g/dL (3.9-5) L 11/25/21 04:13 Albumin/Globulin Ratio 1.3 % 11/25/21 04:13 [place]/IV: Voiding Method Indwelling Catheter Active Medications - Current Medications Current Medications: Generic Name Dose Route Start Last Admin Trade Name Freq PRN Reason Stop Dose Admin Acetaminophen 650 mg 11/24/21 20:15 Acetaminophen 325 Mg Tab PO Q4H PRN Pain MILD(1-3)/Fever >100.5/HUERTA Amlodipine Besylate 5 mg 11/26/21 14:00 Amlodipine 5 Mg Tab PO QDAY LORRAINE Dextrose 0 ml 11/25/21 09:08 Dextrose 10% *Hypoglycemia IV PRN PRN Hypoglycemia Docusate Sodium 100 mg 02/22/22 22:00 11/26/21 09:37 Docusate Sodium 100 Mg Cap PO 100 mg BID LORRAINE Administration Enoxaparin Sodium 40 mg 11/25/21 22:00 11/25/21 21:08 Enoxaparin 40 Mg/0.4 Ml Inj SUB-Q 40 mg QDAY@2200 LORRAINE Administration Protocol Famotidine 20 mg 11/25/21 10:00 11/26/21 09:37 Famotidine 20 Mg Tab PO 20 mg QDAY LORRAINE Administration Insulin Glargine 20 units 11/26/21 09:00 11/26/21 09:34 Insulin Glargine 100 Units/Ml SUB-Q 20 units QAMDIAB LORRAINE Administration Insulin Human Lispro 0 unit 11/26/21 11:30 11/26/21 13:03 Insulin Lispro 100 Unit/Ml SUB-Q 2 unit ACHS LORRAINE Administration Protocol Insulin Human Lispro 5 unit 11/26/21 11:30 11/26/21 13:02 Insulin Lispro 100 Unit/Ml SUB-Q 5 unit TIDAC LORRAINE Administration Metoprolol Tartrate 25 mg 11/26/21 22:00 Metoprolol Tartrate 25 Mg Tab PO BID LORRAINE Ondansetron HCl 4 mg 11/24/21 20:15 Ondansetron 4 Mg/2 Ml Inj IV Q8H PRN Nausea And Vomiting Sodium Chloride 10 ml 11/24/21 22:00 11/26/21 09:37 Sodium Chloride 0.9% 10 Ml Flush Syringe IV 10 ml BID LORRAINE Administration Sodium Chloride 10 ml 11/24/21 20:15 Sodium Chloride 0.9% 10 Ml Flush Syringe IV PRN PRN LINE FLUSH Nutrition/Malnutrition Assess - Dietary Evaluation Nutrition/Malnutrition Findings: Nutrition Notes Start: 11/25/21 14:42 Freq: Status: Active Protocol: Document 11/25/21 14:42 ANGELINA (Rec: 11/25/21 14:50 ANGELINA [id number]) Nutrition Notes Need for Assessment generated from: MD Order,Education Initial or Follow up Brief Note Current Diagnosis Acute Kidney Injury,Diabetes, Hypertension Other Pertinent Diagnosis DKA, Acute Metabolic Encephalopathy, Hypercalcemia, Hypermagnesemia. Current Diet NPO. Height 5 ft 4 in Weight 72.2 kg [place] Body Weight (kg) 54.54 BMI 27.3 Intake Prior to Admission Good Weight change and time frame Pt denies having loss body weight [employer]. Weight Status Overweight Subjective/Other Information RD consult for Nutrition Education. Pt currently on NPO. Pt still on critical condition , not a candidate for Nutrition Education at the time, will assess feasibility on F/U. Percent of energy/protein needs met: Pt currently on NPO. Nutrition Intervention Follow-Up By: 12/02/21 Additional Comments Nutrition education will be provided on F/U, if feasible. When pertinent, monitor food tolerance, %PO intake of meals , and BM.
[2021-11-26] MEDS: amLODIPine 5 MG TAB PO SCH (14:37)
[2021-11-26] MEDS: ENOXAPARIN 40 MG/0.4 ML INJ SUB-Q SCH (22:18)
[2021-11-27 07:10] LABS: Blood Urea Nitrogen 11 mg/dL (7-17); Calcium 8.6 mg/dL (8.4-10.2); Hemolysis Index 2
[2021-11-27 07:22] LABS: BUN/Creatinine Ratio 22
[2021-11-27] MEDS: INSULIN LISPRO 100 UNIT/ML SUB-Q SCH ×4 (08:41→11:47)
[2021-11-27] MEDS: INSULIN GLARGINE 100 UNITS/ML SUB-Q SCH (08:44)
[2021-11-27] MEDS: METOPROLOL TARTRATE 25 MG TAB PO SCH (09:06)
[2021-11-27] MEDS: FAMOTIDINE 20 MG TAB PO SCH (09:06)
[2021-11-27] MEDS: amLODIPine 5 MG TAB PO SCH (09:06)
[2021-11-27] MEDS: DOCUSATE SODIUM 100 MG CAP PO SCH (09:06)
--- NOTE | 2021-11-27 11:00 | Discharge Summary ---
Providers - Providers Date of Admission: 11/24/21 20:16 Attending physician: LATASHA PIERRE MD 11/25/21 15:28 Consult to Dietitian/Nutrition [CONS] Routine Physician Instructions: Reason For Exam: Reason for Consult: Diet education Primary care physician: [employer] TE[employer]ER Hospitalization Reason for admission: Diabetic ketoacidosis Condition: Fair Pertinent studies: Reviewed. Procedures: None. Hospital course: Patient is a 50-year-old female past medical history of hypertension and insulin-dependent type 2 diabetes mellitusnoncompliant who presented with DKA, MIKE secondary to vasomotor nephropathy, leukocytosis, hyperkalemia, and a blood glucose of 798. The patient was admitted to the ICU for further management with initiation of IV fluids and an insulin drip. The patient's MIKE, leukocytosis, and DKA eventually resolved. The patient was found to have a hemoglobin A1c of 20.7. The patient was eventually transferred to the floor. The patient was counseled at length about the importance of medication compliance, following up with her primary care provider, dietary changes, and incorporating exercise. It was detailed at length the possible sequelae of uncontrolled diabetes mellitus. The patient expresses understanding. The patient is medically clear for discharge. Disposition: 01 HOME / SELF CARE / HOMELESS Final Discharge Diagnosis (Prints w/discharge instructions): Diabetic ketoacidosis, insulin-dependent type 2 diabetes mellitus with hyperglycemia, MIKE secondary to vasomotor nephropathy, hyponatremia, hyperkalemia, leukocytosis, hypertension, metabolic acidosis Time spent for discharge: 45 min Core Measure Documentation - Palliative Care Palliative Care/ Comfort Measures: Not Applicable - Core Measures Any of the following diagnoses?: none Exam - Constitutional Vitals: Temp Pulse Resp BP Pulse Ox 98.6 F 95 H 18 139/75 97 11/27/21 05:12 11/27/21 05:12 11/27/21 05:12 11/27/21 05:12 11/27/21 05:12 General appearance: Present: no acute distress, well-nourished - EENT Eyes: Present: PERRL, EOM intact ENT: hearing intact, clear oral mucosa, edentulous - Neck Neck: Present: supple, normal ROM - Respiratory Respiratory effort: normal Respiratory: bilateral: CTA - Cardiovascular Rhythm: regular Heart Sounds: Present: S1 & S2 - Extremities Extremities: no ischemia, pulses intact, pulses symmetrical, No edema, normal temperature, normal color, Full ROM Peripheral Pulses: within normal limits - Abdominal General gastrointestinal: Present: soft, non-tender, non-distended, normal bowel sounds Female genitourinary: Present: deferred - Rectal Rectal Exam: deferred - Integumentary Integumentary: Present: clear, warm, dry - Musculoskeletal Musculoskeletal: strength equal bilaterally - Psychiatric Psychiatric: appropriate mood/affect, intact judgment & insight, memory intact, cooperative - Neurologic Neurologic: CNII-XII intact, moves all extremities - Allied Health Allied health notes reviewed: nursing Plan Activity: no restrictions Diet: low salt, diabetic Additional Instructions: Patient is a 50-year-old female past medical history of hypertension and insulin-dependent type 2 diabetes mellitusnoncompliant who presented with DKA, MIKE secondary to vasomotor nephropathy, leukocytosis, hyperkalemia, and a blood glucose of 798. The patient was admitted to the ICU for further management with initiation of IV fluids and an insulin drip. The patient's MIKE, leukocytosis, and DKA eventually resolved. The patient was found to have a hemoglobin A1c of 20.7. The patient was eventually transferred to the floor. The patient was counseled at length about the importance of medication compliance, following up with her primary care provider, dietary changes, and incorporating exercise. It was detailed at length the possible sequelae of uncontrolled diabetes mellitus. The patient expresses understanding. The patient is medically clear for discharge. Care Plan Goals: Patient is medically clear for discharge. Assessment: Patient is a 50-year-old female past medical history of hypertension and insulin-dependent type 2 diabetes mellitusnoncompliant who presented with DKA, MIKE secondary to vasomotor nephropathy, leukocytosis, hyperkalemia, and a blood glucose of 798. The patient was admitted to the ICU for further management with initiation of IV fluids and an insulin drip. The patient's MIKE, leukocytosis, and DKA eventually resolved. The patient was found to have a hemoglobin A1c of 20.7. The patient was eventually transferred to the floor. The patient was counseled at length about the importance of medication compliance, following up with her primary care provider, dietary changes, and incorporating exercise. It was detailed at length the possible sequelae of uncontrolled diabetes mellitus. The patient expresses understanding. The patient is medically clear for discharge. Follow up with: HALEIGH DORAN MD [Primary Care Provider] - 3-5 Days CATHY HOOK MD [Staff Physician] - 7 Days (Posthospitalization follow-up after DKA admission.) Prescriptions: amLODIPine 5 mg PO QDAY #30 tablet Insulin Glargine [Lantus VIAL] 20 units SUB-Q QAMDIAB #2 vial Metoprolol [Lopressor TAB] 25 mg PO BID #60 tablet
[2021-11-27 19:24] VITALS: BP 133/74
== END 2021-11-27 18:45 | disposition home health service (06) | DRG 637 ==
LOC: ED 13:47 → CC1 20:16 → 3A 11-26 14:05
PROVIDERS: ADMIT Internal Medicine; ATTEND Student in an Organized Health Care Education/Training Program
DX: E11.10 Type 2 diabetes mellitus with ketoacidosis without coma (principal); G93.41 Metabolic encephalopathy; N17.0 Acute kidney failure with tubular necrosis; R65.10 Systemic inflammatory response syndrome (SIRS) of non-infectious origin without acute organ dysfunction; E72.19 Other disorders of sulfur-bearing amino-acid metabolism; E87.1 Hypo-osmolality and hyponatremia; I10 Essential (primary) hypertension; E83.52 Hypercalcemia; E11.65 Type 2 diabetes mellitus with hyperglycemia; E87.5 Hyperkalemia
CPT/HCPCS: 36415; 80048; 80053; 80076; 82805; 82962; 83036; 83735; 84100; 85025; G0378; J3480; J3490; J7070; J7510; Q0162; Q9967; J1644; J1650; J1815; J2060; J7030; J7050; J7120